=== PATIENT | female | born 1980 | race Caucasian/White ===

== ENCOUNTER 2017-01-29 19:31 | Emergency (ER) | payer OTHER ==
[~2017-01-29] VITALS: Ht 162.6 cm; Wt 59.0 kg
[~2017-01-29 19:31] MED LIST: NOCURR
[2017-01-29 19:34] VITALS: BP 109/85
== END 2017-01-29 22:06 | disposition left against medical advice (07) ==
LOC: EMS 19:34
DX: R30.9 Painful micturition, unspecified (principal); Z53.21 Procedure and treatment not carried out due to patient leaving prior to being seen by health care provider

== ENCOUNTER 2017-01-30 00:20 | Emergency (ER) | payer SELFPAY ==
[~2017-01-30] VITALS: Ht 165.1 cm; Wt 59.0 kg
[2017-01-30 00:55] LABS: APPEARANCE,URINE CLOUDY (CLEAR); GLUCOSE, URINE (UA) NEGATIVE (NEGATIVE); KETONES,URINE NEGATIVE (NEGATIVE); LEUKOCYTE ESTERASE ,URINE MODERATE (NEGATIVE); OCCULT BLOOD,URINE LARGE (NEGATIVE); PROTEIN,URINE TRACE (NEGATIVE)
[2017-01-30 00:57] LABS: ADD UA MICROSCOPIC YES
[2017-01-30 01:22] LABS: SQUAMOUS EPITHELIAL CELL,UR Moderate /LPF (None Seen)
[2017-01-30] MEDS ORDERED: CefTRIAXone SODIUM 1 GM/VIAL IM ONE (02:45)
[2017-01-30] MEDS ORDERED: LIDOCAINE HCL/PF 1% 2 ML VIAL IM ONE (02:45)
[2017-01-30 03:16] VITALS: BP 119/89
== END 2017-01-30 03:14 | disposition home or self-care (01) ==
LOC: EMS 00:21
DX: N39.0 Urinary tract infection, site not specified (principal); Z87.440 Personal history of urinary (tract) infections
CPT/HCPCS: 81001; 84703; 87077; 87086; 87186; 96372; 99284; J0696; J3490

== ENCOUNTER 2017-12-19 12:39 | Emergency (ER) | payer MEDICAID ==
[~2017-12-19] VITALS: Ht 162.6 cm; Wt 59.1 kg
[2017-12-19 14:37] VITALS: BP 109/77
== END 2017-12-19 14:40 | disposition home or self-care (01) ==
LOC: EMS 12:40
DX: N39.0 Urinary tract infection, site not specified (principal)
CPT/HCPCS: 99283

== ENCOUNTER 2018-08-04 12:27 | Emergency (ER) | payer MEDICAID ==
[~2018-08-04] VITALS: Ht 162.6 cm; Wt 68.2 kg
[2018-08-04] MEDS ORDERED: ONDANSETRON HCL 4 MG/2 ML VIAL IVP ONE (15:15)
[2018-08-04] MEDS ORDERED: PB/HYOSCY/ATR/SCOP/LIDO/MAALOX 55 ML BOTTLE PO ONE (15:15)
[2018-08-04] MEDS ORDERED: SODIUM CHLORIDE 0.9% 1,000 ML IV ONE (15:30)
[2018-08-04 15:45] LABS: BASOPHILS % (AUTO) 0.8 % (0.0-2.0); EOSINOPHILS % (AUTO) 2.8 % (1.0-6.0); HEMATOCRIT 43.1 % (36-46); HEMOGLOBIN 14.5 g/dL (12.0-16.0); LYMPHOCYTES # (AUTO) 1.6 K/uL (1.0-4.8); LYMPHOCYTES % (AUTO) 25.4 % (22.0-44.0); MEAN CORPUSCULAR HGB CONC 33.6 G/dL (31.0-37.0); MEAN CORPUSCULAR VOLUME 93 fL (80-100); MONOCYTES # (AUTO) 0.4 K/uL (0.1-1.0); MONOCYTES % (AUTO) 5.6 % (2.0-9.0); NEUTROPHILS # (AUTO) 4.2 K/uL (1.8-7.7); NEUTROPHILS % (AUTO) 65.4 % (40.0-70.0); PLATELET COUNT (AUTO) 193 K/uL (150-450); RED BLOOD CELL COUNT(AUTO) 4.66 MIL/uL (4.00-5.20); RED CELL DISTRIBUTION WIDTH 12.5 % (11.5-14.5)
[2018-08-04 15:48] LABS: APPEARANCE,URINE CLOUDY (CLEAR); BILIRUBIN,URINE NEGATIVE (NEGATIVE); GLUCOSE, URINE (UA) NEGATIVE (NEGATIVE); KETONES,URINE NEGATIVE (NEGATIVE); LEUKOCYTE ESTERASE ,URINE NEGATIVE (NEGATIVE); NITRATE,URINE NEGATIVE (NEGATIVE); OCCULT BLOOD,URINE NEGATIVE (NEGATIVE); PROTEIN,URINE NEGATIVE (NEGATIVE)
[2018-08-04 16:04] LABS: ANION GAP 12 mmol/L (8-16); CALCIUM, TOTAL 9.2 mg/dL (8.8-10.5); CARBON DIOXIDE 24 mmol/L (22-29); CHLORIDE 105 mmol/L (98-107); CREATININE 0.54 mg/dL (0.60-1.30); GLOMERULAR FILTR. RATE CALC > 60 mL/min (>60); GLUCOSE,RANDOM 88 mg/dL (70-110); POTASSIUM 3.7 mmol/L (3.5-5.1); SODIUM SERUM 141 mmol/L (136-145); UREA NITROGEN, BLOOD 17 mg/dL (7-18)
[2018-08-04 16:15] LABS: ALANINE AMINOTRANSFERASE 20 U/L (12-78); ALBUMIN 4.3 g/dL (3.4-5.0); ALKALINE PHOSPHATASE 81 U/L (46-116); ASPARTATE AMINOTRANSFERASE 16 U/L (15-37); BILIRUBIN,TOTAL 0.4 mg/dL (0.1-1.0); HCG,QUANTITATIVE < 1 mIU/mL (0-6); LIPASE 145 U/L (73-393); TOTAL PROTEIN, SERUM 8.2 g/dL (6.4-8.2)
[2018-08-04 17:16] VITALS: BP 127/76
== END 2018-08-04 17:26 | disposition home or self-care (01) ==
LOC: EMS 12:27
DX: K80.20 Calculus of gallbladder without cholecystitis without obstruction (principal); F12.90 Cannabis use, unspecified, uncomplicated
CPT/HCPCS: 36415; 76705; 80053; 81003; 83690; 84702; 85025; 96361; 96374; 99284; J2405; J7030

== ENCOUNTER 2019-07-10 06:48 | Emergency (ER) | payer MEDICAID ==
[~2019-07-10] VITALS: Ht 154.9 cm; Wt 65.9 kg
[2019-07-10] MEDS ORDERED: ACETAMINOPHEN 500 MG TABLET PO ONE (07:45)
[2019-07-10 08:44] LABS: INFLUENZA TYPE A POSITIVE FOR TYPE A (NEGATIVE); INFLUENZA TYPE B NEGATIVE FOR TYPE B (NEGATIVE)
[2019-07-10] MEDS ORDERED: OSELTAMIVIR PHOSPHATE 75 MG CAPSULE PO ONE (09:00)
[2019-07-10] MEDS ORDERED: IBUPROFEN 800 MG TABLET PO ONE (09:00)
[2019-07-10 09:18] LABS: APPEARANCE,URINE CLOUDY (CLEAR); BILIRUBIN,URINE NEGATIVE (NEGATIVE); GLUCOSE, URINE (UA) NEGATIVE (NEGATIVE); KETONES,URINE >=80 mg/dL (NEGATIVE); LEUKOCYTE ESTERASE ,URINE NEGATIVE (NEGATIVE); NITRATE,URINE NEGATIVE (NEGATIVE); OCCULT BLOOD,URINE NEGATIVE (NEGATIVE); PROTEIN,URINE TRACE (NEGATIVE)
[2019-07-10 09:28] LABS: BACTERIA,URINE Few /HPF (None Seen); RBC,URINE None Seen /HPF (0-2); SQUAMOUS EPITHELIAL CELL,UR Moderate /LPF (None Seen); WBC,URINE 0-2 /HPF (0-5)
[2019-07-10 09:30] VITALS: BP 112/65
== END 2019-07-10 09:49 | disposition home or self-care (01) ==
LOC: EMS 06:50
DX: J11.1 Influenza due to unidentified influenza virus with other respiratory manifestations (principal)
CPT/HCPCS: 87804

== ENCOUNTER 2020-10-15 10:57 | Day surgery (SDC) | payer MEDICAID ==
[2020-10-12 12:15] LABS: COVID AG,FIA SOURCE NASOPHARYNGEAL
[2020-10-12 12:19] LABS: EOSINOPHILS % (AUTO) 4.3 % (1.0-6.0); HEMATOCRIT 41.8 % (36-46); HEMOGLOBIN 13.8 g/dL (12.0-16.0); LYMPHOCYTES # (AUTO) 1.5 K/uL (1.0-4.8); LYMPHOCYTES % (AUTO) 24.2 % (22.0-44.0); MEAN CORPUSCULAR HEMOGLOBIN 31.6 pg (26.0-34.0); MEAN CORPUSCULAR VOLUME 96 fL (80-100); MONOCYTES # (AUTO) 0.4 K/uL (0.1-1.0); MONOCYTES % (AUTO) 5.9 % (2.0-9.0); NEUTROPHILS # (AUTO) 4.1 K/uL (1.8-7.7); NEUTROPHILS % (AUTO) 64.6 % (40.0-70.0); PLATELET COUNT (AUTO) 216 K/uL (150-450); RED BLOOD CELL COUNT(AUTO) 4.37 MIL/uL (4.00-5.20); RED CELL DISTRIBUTION WIDTH 12.8 % (11.5-14.5)
[2020-10-12 12:26] LABS: ANION GAP 11 mmol/L (8-16); CALCIUM, TOTAL 8.9 mg/dL (8.8-10.5); CARBON DIOXIDE 25 mmol/L (22-29); CHLORIDE 105 mmol/L (98-107); CREATININE 0.55 mg/dL (0.60-1.30); GLOMERULAR FILTR. RATE CALC > 60 mL/min (>60); GLUCOSE,RANDOM 104 mg/dL (70-110); POTASSIUM 4.1 mmol/L (3.5-5.1); SODIUM SERUM 141 mmol/L (136-145); UREA NITROGEN, BLOOD 13 mg/dL (7-18)
[2020-10-12 12:40] LABS: HCG,QUANTITATIVE < 1 mIU/mL (0-6)
[~2020-10-15] VITALS: Ht 162.6 cm; Wt 66.4 kg
[~2020-10-15 10:57] MED LIST changes: -NOCURR; +OMEP20 PO; +RINGERS SOLUTION,LACTATED 1,000 ML IV ONE
[2020-10-15] MEDS ORDERED: RINGERS SOLUTION,LACTATED 1,000 ML IV ONE (11:00)
[2020-10-15] MEDS ORDERED: MIDAZOLAM HCL 2 MG/2 ML VIAL IVP ONE (12:00)
[2020-10-15] MEDS ORDERED: FentaNYL CITRATE PF 100 MCG/2 ML VIAL IVP ONE (12:00)
[2020-10-15] MEDS ORDERED: PROPOFOL 1000 MG/ISO-OSM 100 ML IV ONE (12:07)
[2020-10-15] MEDS ORDERED: ROCURONIUM BROMIDE 10 MG/ML 5 ML VIAL ONE (12:12)
[2020-10-15] MEDS ORDERED: MEPERIDINE-PF 25 MG/ML VIAL IVP PRN (14:30)
[2020-10-15] MEDS ORDERED: HYDROmorphone 2 MG/ML VIAL IVP PRN (14:30)
[2020-10-15] MEDS ORDERED: FentaNYL CITRATE PF 100 MCG/2 ML VIAL IVP PRN (14:30)
[2020-10-15] MEDS ORDERED: FentaNYL CITRATE PF 100 MCG/2 ML VIAL ONE (14:36)
[2020-10-15] MEDS ORDERED: HYDROmorphone 2 MG/ML VIAL ONE (14:54)
== END 2020-10-15 16:00 | disposition home or self-care (01) ==
LOC: SURGERY 10:57
PROVIDERS: ATTEND Surgery
DX: K42.9 Umbilical hernia without obstruction or gangrene (principal); K80.10 Calculus of gallbladder with chronic cholecystitis without obstruction; K21.9 Gastro-esophageal reflux disease without esophagitis; I10 Essential (primary) hypertension; Z20.822 Contact with and (suspected) exposure to COVID-19; Z98.890 Other specified postprocedural states; Z79.899 Other long term (current) drug therapy
CPT/HCPCS: 36415; 47562; 49585; 80048; 84702; 85025; 87426; 88304; C9803; J1170; J2250; J2704; J3010; J3490; J7120

== ENCOUNTER 2021-11-05 15:36 | Emergency (ER) | payer MEDICAID ==
[~2021-11-05] VITALS: Ht 162.6 cm; Wt 63.6 kg
[~2021-11-05 15:36] MED LIST changes: -RINGERS SOLUTION,LACTATED 1,000 ML IV ONE
[2021-11-05] MEDS ORDERED: ONDANSETRON HCL 4 MG/2 ML VIAL IVP ONE (16:00)
[2021-11-05] MEDS ORDERED: SODIUM CHLORIDE 0.9% 1,000 ML IV ONE (16:00)
[2021-11-05 16:07] LABS: BASOPHILS % (AUTO) 0.7 % (0.0-2.0); EOSINOPHILS % (AUTO) 1.9 % (1.0-6.0); HEMATOCRIT 39.9 % (36-46); HEMOGLOBIN 13.4 g/dL (12.0-16.0); LYMPHOCYTES # (AUTO) 1.6 K/uL (1.0-4.8); LYMPHOCYTES % (AUTO) 24.2 % (22.0-44.0); MEAN CORPUSCULAR HEMOGLOBIN 30.8 pg (26.0-34.0); MEAN CORPUSCULAR HGB CONC 33.6 G/dL (31.0-37.0); MEAN CORPUSCULAR VOLUME 92 fL (80-100); MONOCYTES # (AUTO) 0.4 K/uL (0.1-1.0); MONOCYTES % (AUTO) 5.8 % (2.0-9.0); NEUTROPHILS # (AUTO) 4.5 K/uL (1.8-7.7); NEUTROPHILS % (AUTO) 67.4 % (40.0-70.0); PLATELET COUNT (AUTO) 201 K/uL (150-450); RED BLOOD CELL COUNT(AUTO) 4.36 MIL/uL (4.00-5.20)
[2021-11-05 16:20] LABS: ANION GAP 7 mmol/L (8-16); CALCIUM, TOTAL 9.3 mg/dL (8.8-10.5); CARBON DIOXIDE 24 mmol/L (22-29); CHLORIDE 105 mmol/L (98-107); CREATININE 0.71 mg/dL (0.60-1.30); GLOMERULAR FILTR. RATE CALC > 60 mL/min (>60); GLUCOSE,RANDOM 119 mg/dL (70-110); POTASSIUM 3.6 mmol/L (3.5-5.1); SODIUM SERUM 136 mmol/L (136-145); UREA NITROGEN, BLOOD 15 mg/dL (7-18)
[2021-11-05 16:31] LABS: ALANINE AMINOTRANSFERASE 24 U/L (12-78); ALKALINE PHOSPHATASE 100 U/L (46-116); ASPARTATE AMINOTRANSFERASE 20 U/L (15-37); BILIRUBIN,TOTAL 0.6 mg/dL (0.1-1.0); HCG,QUANTITATIVE < 1 mIU/mL (0-6); LIPASE 64 U/L (73-393); TOTAL PROTEIN, SERUM 7.9 g/dL (6.4-8.2)
[2021-11-05 17:02] LABS: APPEARANCE,URINE HAZY (CLEAR); BILIRUBIN,URINE NEGATIVE (NEGATIVE); GLUCOSE, URINE (UA) NEGATIVE (NEGATIVE); LEUKOCYTE ESTERASE ,URINE LARGE (NEGATIVE); NITRATE,URINE NEGATIVE (NEGATIVE); OCCULT BLOOD,URINE NEGATIVE (NEGATIVE); PH,URINE 5.5 (5.0-8.0); PROTEIN,URINE TRACE mg/dL (NEGATIVE); SPECIFIC GRAVITIY, URINE 1.026 (1.003-1.030); UROBILINOGEN,URINE <=1.0 mg/dL (<=1.0)
[2021-11-05] MEDS ORDERED: KETOROLAC TROMETHAMINE 30 MG/ML VIAL IVP ONE (17:15)
[2021-11-05 17:21] LABS: BACTERIA,URINE Many /HPF (None Seen); RBC,URINE 0-2 /HPF (0-2); SQUAMOUS EPITHELIAL CELL,UR Many /LPF (None Seen); WBC,URINE 26-50 /HPF (0-5)
[2021-11-05 18:17] VITALS: BP 115/73
[2021-11-05] MEDS ORDERED: CEPH-558 PO (18:48)
== END 2021-11-05 19:03 | disposition home or self-care (01) ==
LOC: EDUNIT# 15:36 → EMS 15:37
DX: N39.0 Urinary tract infection, site not specified (principal); K76.9 Liver disease, unspecified; Z87.440 Personal history of urinary (tract) infections; Z90.49 Acquired absence of other specified parts of digestive tract; Z98.890 Other specified postprocedural states
CPT/HCPCS: 36415; 76700; 80053; 81001; 83690; 84702; 85025; 87086; 96361; 96374; 96375; 99284; J1885; J2405; J7030

== ENCOUNTER 2023-05-06 05:45 | Emergency (ER) | payer MEDICAID ==
[~2023-05-06] VITALS: Ht 162.6 cm; Wt 62.3 kg
[~2023-05-06 05:45] MED LIST changes: +CEPH-558 PO
[2023-05-06 05:56] VITALS: TEMP 98.8
[2023-05-06] MEDS ORDERED: ONDANSETRON HCL 4 MG TABLET PO ONE (06:15)
[2023-05-06] MEDS ORDERED: IBUPROFEN 600 MG TABLET PO ONE (06:15)
[2023-05-06 07:14] LABS: COVID AG,FIA SOURCE NASAL SWAB
[2023-05-06 07:30] VITALS: BP 117/67; PULSE 68; RESP 14
[2023-05-06 07:49] LABS: SARS-COV2 (COVID) ANTIGEN,FIA Negative (Negative)
[2023-05-06] MEDS ORDERED: IBUP-1492 PO (07:55)
[2023-05-06] MEDS ORDERED: ONDA-104 PO (07:55)
== END 2023-05-06 08:02 | disposition home or self-care (01) ==
LOC: EMS 05:45
DX: J02.8 Acute pharyngitis due to other specified organisms (principal); Z90.49 Acquired absence of other specified parts of digestive tract; Z98.890 Other specified postprocedural states; Z20.822 Contact with and (suspected) exposure to COVID-19
CPT/HCPCS: 99283; 87426; 87430; Q0162

== ENCOUNTER 2024-08-15 19:55 | Emergency (ER) | payer MEDICAID ==
[~2024-08-15] VITALS: Ht 165.1 cm; Wt 71.0 kg
[~2024-08-15 19:55] MED LIST changes: -CEPH-558 PO; +IBUP-1492 PO; +ONDA-104 PO
[2024-08-15 20:03] VITALS: BP 114/85; PULSE 89; RESP 18; TEMP 98.3; O2SAT 98
[2024-08-15 21:15] LABS: APPEARANCE,URINE CLEAR (CLEAR); BILIRUBIN,URINE NEGATIVE (NEGATIVE); COLOR,URINE COLORLESS (YELLOW); GLUCOSE, URINE (UA) NEGATIVE (NEGATIVE); KETONES,URINE NEGATIVE (NEGATIVE); LEUKOCYTE ESTERASE ,URINE MODERATE (NEGATIVE); NITRATE,URINE NEGATIVE (NEGATIVE); OCCULT BLOOD,URINE MODERATE (NEGATIVE); PROTEIN,URINE NEGATIVE (NEGATIVE); SPECIFIC GRAVITIY, URINE 1.007 (1.003-1.030); UROBILINOGEN,URINE <=1.0 mg/dL (<=1.0)
[2024-08-15 21:32] LABS: BACTERIA,URINE None Seen /HPF (None Seen); SQUAMOUS EPITHELIAL CELL,UR Few /LPF (None Seen)
== END 2024-08-16 01:17 | disposition left against medical advice (07) ==
LOC: EMS 19:55
DX: R30.0 Dysuria (principal); Z53.21 Procedure and treatment not carried out due to patient leaving prior to being seen by health care provider
CPT/HCPCS: 81001; 84703